=== PATIENT | female | born 1955 | race Caucasian/White ===

== ENCOUNTER 2022-05-19 21:17 | Emergency (ER) | payer OTHER ==
[2022-05-19 21:28] VITALS: BP 153/88; PULSE 73; RESP 16; TEMP 97.8; BMI 21.6
[2022-05-19 22:10] LABS: ALBUMIN 4.8 g/dl (3.4-5.0); BILIRUBIN,TOTAL 1.3 mg/dl (0.2-1); CALCIUM 9.4 mg/dl (8.5-10); CREATININE 0.8 mg/dl (0.55-1.3); TOT PROT 7.2 g/dl (6.4-8.2)
[2022-05-19 22:53] LABS: BASO % 1.2 % (0-2.0); EOS % 3.4 % (0-4.5); HEMATOCRIT 45.3 % (32.4-45.2); HEMOGLOBIN 15.5 GM/dL (10.7-15.3); LYMPH % 25.6 % (8-40); MCH 30.9 pg (25.7-33.7); MCHC 34.2 g/dl (32.0-36.0); MEAN CELL VOLUME 90.3 fl (80-96); MEAN PLT VOLUME 8.4 fl (7.5-11.1); MONO % 8.9 % (3.8-10.2); NEUT % 60.9 % (42.8-82.8); PLATELET COUNT 237 10^3/uL (134-434); RBC 5.01 M/mm3 (3.60-5.2); RDW 13.8 % (11.6-15.6); WHITE BLOOD COUNT 5.7 K/mm3 (4.0-10.0)
== END 2022-05-20 01:10 | disposition home or self-care (01) ==
LOC: FER 21:17
DX: R07.89 Other chest pain (principal)
CPT/HCPCS: 36415; 71046-TC-FY; 80053; 84484; 85025; 93005; 99285-25

== ENCOUNTER 2023-04-19 19:58 | Emergency (ER) | payer OTHER ==
[2023-04-19 20:12] VITALS: BP 129/69; PULSE 70; RESP 16; TEMP 98.4; BMI 21.6
[2023-04-19] MEDS ORDERED: IBUPROFEN 600 MG TABLET (FP) PO ONE (20:40)
[2023-04-19] MEDS: IBUPROFEN 600 MG TABLET (FP) PO ONE (20:41)
== END 2023-04-19 23:07 | disposition home or self-care (01) ==
LOC: FER 19:58
DX: M25.572 Pain in left ankle and joints of left foot (principal); M79.672 Pain in left foot; S82.62XA Displaced fracture of lateral malleolus of left fibula, initial encounter for closed fracture; W10.9XXA Fall (on) (from) unspecified stairs and steps, initial encounter
CPT/HCPCS: 73610-TC-LT-FY; 73630-TC-LT; 99283-25